=== PATIENT | male | born 1950 | race Two or more races ===

== ENCOUNTER 2023-10-07 06:48 | Inpatient (IN) | payer OTHER, MEDICAID ==
[~2023-10-07] VITALS: Ht 177.8 cm; Wt 107.8 kg
[2023-10-07 08:12] LABS: Urine Bacteria MOD /hpf (None Seen); Urine Blood 3+ /uL (Negative); Urine Protein, UAD 1+ (Negative); Urine Urobilinogen Normal (Negative); Urine WBC 506 /hpf (0 - 3); Urine WBC Clumps PRESENT /hpf (None Seen)
[2023-10-07 08:18] LABS: Urine Clarity Cloudy (Clear); Urine Color Yellow (Yellow)
[2023-10-07 08:45] LABS: Basophils # (auto) 0 10 ^3/uL (0-0.2); Basophils % (auto) 0.5 % (0.0-2.0); Eosinophils # (auto) 0.3 10 ^3/uL (0-0.8); Eosinophils % (auto) 3.5 % (0.0-7.0); Hematocrit 35.8 % (41.0-53.0); Hemoglobin 12.6 g/dL (13.5-17.5); Lymphocytes # (auto) 0.8 10 ^3/uL (0.4-5.4); Lymphocytes % (auto) 10.6 % (10.0-50.0); Mean Corpuscular Hemoglobin 31.1 pg (28.0-32.0); Mean Corpuscular Hgb Conc. 35.3 g/dL (32.0-36.0); Mean Corpuscular Volume 88.1 fL (80.0-100.0); Monocytes # (auto) 0.4 10 ^3/uL (0-1.3); Monocytes % (auto) 5.1 % (0.0-12.0); Neutrophils # (auto) 5.8 10 ^3/uL (1.6-8.6); Neutrophils % (auto) 80.3 % (37.0-80.0); Red Blood Cells 4.06 10^6/uL (4.5-5.90); Red Cell Distribution Width 15.2 % (11.8-14.3); White Blood Cell 7.2 10^3/uL (4.4-10.8)
[2023-10-07 08:47] LABS: Chloride 107 mmol/L (98-107); Potassium 4.3 mmol/L (3.5-5.1); Sodium 138 mmol/L (136-145)
[2023-10-07 08:48] LABS: Anion Gap 3 (5-15); Calcium 9.5 mg/dL (8.7-10.4); Carbon Dioxide 28 mmol/L (20-30)
[2023-10-07 08:53] LABS: BUN/Creatinine Ratio 22.9 (10.0-20.0); Blood Urea Nitrogen 24 mg/dL (9-23); Glucose 101 mg/dL (74-106)
[2023-10-07] MEDS ORDERED: NAP500T PO (10:43)
[2023-10-07] MEDS ORDERED: BENZ100C97 PO (10:43)
[2023-10-07] MEDS ORDERED: HYDR25TA5 PO (10:43)
[2023-10-07] MEDS ORDERED: FLUT50SP NAS (10:43)
[2023-10-07] MEDS ORDERED: ATOR40TA52 PO (10:43)
[2023-10-07] MEDS ORDERED: ACETAMINOPHEN 325 MG TAB PO PRN (10:45)
[2023-10-07 11:32] LABS: Triglycerides 110 mg/dL (< 150)
[2023-10-07 11:33] LABS: LDL Cholesterol 59 mg/dL (< 100)
[2023-10-07 11:34] LABS: Cholesterol 102 mg/dL (< 200); HDL Cholesterol 32 mg/dL (40-59)
[2023-10-07 15:55] VITALS: PULSE 77; RESP 18; O2SAT 97
[2023-10-07] MEDS: SODIUM CHLORIDE 0.9% 1,000 ML IV SCH (17:38)
[2023-10-07] MEDS: cefTRIAXone 1GM/50ML D5W 50 ML IV ONE (17:39)
[2023-10-07] MEDS: SULFAMETH-TRIMETH 80/16MG-ML 15 ML in D5W 5% 500 ML IV ONE (18:46)
[2023-10-07 23:30] VITALS: BP 144/91; PULSE 85; RESP 17; TEMP 98.5; O2SAT 97
[2023-10-08] VITALS (9 sets, daily range): BP systolic 120–145; BP diastolic 55–91; PULSE 65–85; RESP 16–18; TEMP 98–98.7; O2SAT 95–98
[2023-10-08] MEDS: cefTRIAXone 1GM/50ML D5W 50 ML IV SCH (08:15)
[2023-10-08 09:21] LABS: Basophils # (auto) 0 10 ^3/uL (0-0.2); Basophils % (auto) 0.4 % (0.0-2.0); Eosinophils # (auto) 0.2 10 ^3/uL (0-0.8); Eosinophils % (auto) 2.3 % (0.0-7.0); Hematocrit 38.6 % (41.0-53.0); Hemoglobin 13.5 g/dL (13.5-17.5); Lymphocytes # (auto) 0.9 10 ^3/uL (0.4-5.4); Lymphocytes % (auto) 11.8 % (10.0-50.0); Mean Corpuscular Hemoglobin 31.3 pg (28.0-32.0); Mean Corpuscular Hgb Conc. 34.9 g/dL (32.0-36.0); Mean Corpuscular Volume 89.7 fL (80.0-100.0); Monocytes # (auto) 0.3 10 ^3/uL (0-1.3); Neutrophils # (auto) 6.4 10 ^3/uL (1.6-8.6); Neutrophils % (auto) 81.5 % (37.0-80.0); Red Blood Cells 4.31 10^6/uL (4.5-5.90); Red Cell Distribution Width 15.4 % (11.8-14.3); White Blood Cell 7.9 10^3/uL (4.4-10.8)
[2023-10-08 09:34] LABS: Alanine Aminotransferase 13 U/L (7-40); Alkaline Phosphatase 84 U/L (46-116); Anion Gap 6 (5-15); Calcium 9.3 mg/dL (8.7-10.4); Carbon Dioxide 25 mmol/L (20-30); Chloride 107 mmol/L (98-107); Glucose 156 mg/dL (74-106); Sodium 138 mmol/L (136-145)
[2023-10-08 09:35] LABS: Aspartate Aminotransferase 11 U/L (13-40); BUN/Creatinine Ratio 16.5 (10.0-20.0); Blood Urea Nitrogen 18 mg/dL (9-23)
[2023-10-08 09:37] LABS: Bilirubin, Total 0.6 mg/dL (0.2-1.0); Total Protein 7.2 g/dL (5.7-8.2)
[2023-10-08] MEDS: ATORVASTATIN 20 MG TAB PO SCH (21:15)
[2023-10-09] VITALS (7 sets, daily range): BP systolic 125–153; BP diastolic 74–82; PULSE 65–83; RESP 17–18; TEMP 97.9–98.4; O2SAT 94–100
[2023-10-09] MEDS: hydroCHLOROthiazide 25 MG TAB PO SCH (08:34)
[2023-10-10 01:00] VITALS: BP 161/75; PULSE 75; RESP 20; TEMP 98.1; O2SAT 97
[2023-10-10] MEDS: hydrALAZINE HCL 20 MG/ML VL IV ONE (01:22)
[2023-10-10 04:58] VITALS: BP 129/69; PULSE 77; RESP 18; TEMP 97.5; O2SAT 96
[2023-10-10 08:00] VITALS: PULSE 71; RESP 18; O2SAT 99
[2023-10-10 09:00] VITALS: BP 126/75; PULSE 71; RESP 18; TEMP 97.8; O2SAT 99
[2023-10-10 13:00] VITALS: BP 124/79; PULSE 80; RESP 16; TEMP 98; O2SAT 95
[2023-10-10 16:43] VITALS: BP 152/82; PULSE 76; RESP 16; TEMP 98; O2SAT 98
[2023-10-10 18:18] LABS: COVID19 ANTIGEN SOFIA FIA NEGATIVE (NEGATIVE)
== END 2023-10-10 19:50 | DRG 690 ==
LOC: ER 06:48 → OVERFLOW 10:43 → WEST WING 22:53
PROVIDERS: ADMIT Nurse Practitioner Family; ATTEND Family Medicine
DX: N30.01 Acute cystitis with hematuria (principal); I10 Essential (primary) hypertension; E78.00 Pure hypercholesterolemia, unspecified; B96.20 Unspecified Escherichia coli [E. coli] as the cause of diseases classified elsewhere; Z20.822 Contact with and (suspected) exposure to COVID-19; Z92.3 Personal history of irradiation; Z85.46 Personal history of malignant neoplasm of prostate; Z79.899 Other long term (current) drug therapy
CPT/HCPCS: 36415; 74176; 80048; 80053; 80061; 81001; 83605; 84443; 85025; 87040; 87086; 87088; 87186; 87426; 96361; 96365; 96367; G0378; J3490